=== PATIENT | female | born 1995 | race Caucasian/White ===

== ENCOUNTER 2020-10-05 11:59 | Observation (INO) | payer MEDICAID ==
[~2020-10-05] VITALS: Ht 152.4 cm; Wt 74.4 kg
== END 2020-10-05 13:49 | disposition home or self-care (01) ==
LOC: 8 EST LDRP 11:59
PROVIDERS: ADMIT Specialist; ATTEND Specialist
DX: O62.9 Abnormality of forces of labor, unspecified (principal); Z3A.40 40 weeks gestation of pregnancy
CPT/HCPCS: 59025; 76815; 76818; G0378; 99281

== ENCOUNTER 2020-10-10 14:56 | Observation (INO) | payer MEDICAID ==
[~2020-10-10] VITALS: Ht 165.1 cm; Wt 74.8 kg
== END 2020-10-10 17:10 | disposition home or self-care (01) ==
LOC: 8 EST LDRP 14:56
PROVIDERS: ADMIT Specialist; ATTEND Specialist
DX: O48.0 Post-term pregnancy (principal); Z3A.40 40 weeks gestation of pregnancy
CPT/HCPCS: 59025; 76815; 76818; G0378; 99281